=== PATIENT | female | born 2000 | race Caucasian/White ===

== ENCOUNTER 2023-03-07 16:08 | Emergency (ER) | payer BC, SELFPAY ==
[2023-03-07 16:09] VITALS: BP 121/82
[2023-03-07 16:26] LABS: % Basophils 0.5 % (0-2); % Eosinophils 0.8 % (0-6); % Immature Granulocytes 0.1 % (0-0.5); % Monocytes 5.7 % (1.7-9.3); % Neutrophils 73.9 % (42.2-75.2); Absolute Eosinophils 0.1 10^3/uL (0-0.7); Absolute Lymphocytes 1.4 10^3/uL (1.2-3.4); Absolute Monocytes 0.4 10^3/uL (0.1-0.6); Absolute Neutrophils 5.5 10^3/uL (1.4-6.5); Hematocrit 31.5 % (37.0-47.0); Hemoglobin 11.1 g/dL (12.0-16.0); Mean Corp Hgb Conc. 35.2 g/dL (33.0-37.0); Mean Corpuscular Hgb 32.5 pg (27.0-31.0); Mean Corpuscular Volume 92.1 fL (81.0-99.0); Mean Platelet Volume 9.2 fL (7.4-10.4); Nucleated Red Blood Cells % 0 %; Platelet Count 260 10^3/uL (130-400); Red Blood Cell Count 3.42 10^6/uL (4.20-5.40); Red Cell Dist. Width 12.5 % (11.5-14.5); White Blood Cell Count 7.4 10^3/uL (4.8-10.8)
[2023-03-07 16:55] LABS: ALT (SGPT) 12 U/L (0-35); AST (SGOT) 19 U/L (14-36); Albumin 4.3 g/dl (3.5-5.0); Alkaline Phosphatase 53 U/L (38-126); Blood Urea Nitrogen 11 mg/dl (7-17); Calcium 9.1 mg/dl (8.4-10.2); Carbon Dioxide 24 mmol/L (22-30); Chloride 99 mmol/L (98-107); Glucose 85 mg/dl (70-99); Potassium 3.4 mmol/L (3.5-5.1); Sodium 136 mmol/L (135-145); Total Bilirubin 1.3 mg/dl (0.2-1.3); Total Protein 7.1 g/dl (6.3-8.2); eGFR > 60.00
[2023-03-07] MEDS: NSS 1000 IV (18:22)
[2023-03-07] MEDS: OMNIPAQUE 50 ML PO (18:23)
[2023-03-07] MEDS: ZOFRAN 4 MG IV (18:23)
[2023-03-07] MEDS: TORADOL 30 MG IV (18:23)
--- NOTE | 2023-03-07 18:23 | ED.GENMED ---
History of Present Illness
General
Chief Complaint: Abdominal Pain
Source: patient
Exam Limitations: none
Time Seen by Provider: 03/07/23 18:04
Travel History
Have you had any contact with someone who has COVID-19?: No
Do you have any symptoms of coronavirus? Fever > 100 degrees, chills, cough, shortness of breath, sore throat, loss of taste or smell, muscle aches, or headache?: No
History of Present Illness
History of Present Illness:
This is a 22 year old female that comes in with c/o abd pain. States that she has had abd pain for the past 4 days, an 09/21. States that she is also nauseated. States that at first she thought it was from her period as she just started. States that
she was told that her first couple periods may be worse after her surgery for endometrial cyst. States that she has not been able to eat and that the pain is severe. 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 States that she
vomited 5 times on Sunday and once on Sunday. States that she had a little diarrhea, has a headache and feels lightheaded. Denies any fever, chills, chest pain, SOB, urinary burning.
Past History
Past History
ED Past Medical History: Psychiatric (Anxiety) and Other (Ovarian cyst and uterine fibroids. ADHD)
ED Past Surgical History: Gynecological (bilateral ovarian cystectomy due to Endometriosis)
Social History
Tobacco: Non-smoker
Alcohol: None
Personal: Single
Living: with family
Employment: Employed
Review of Systems
Review of Systems
All Other Systems: ROS reviewed and negative except as documented in HPI and ROS
Constitutional: Reports no symptoms; Denies fever or chills
EENT: Reports no symptoms
Respiratory: Reports no symptoms; Denies cough or trouble breathing
Cardiac: Reports chest pain
ABD/GI: Reports abdominal pain, nausea, vomiting and diarrhea
: Reports no symptoms; Denies dysuria, frequency or urgency
Musculoskeletal: Reports no symptoms
Skin: Reports no symptoms
Neurological: Reports dizzy (Lightheaded) and headache
Psychiatric: Reports no symptoms
Phy Exam
General Physical Exam
General Presentation: no apparent distress
General age: appears stated age
General Skin: warm and dry
General Habitus: normal
General Mental: alert
General Hydration: appears well hydrated
ENT Exam
ENT Exam: TM's normal, pharynx normal and neck supple
Eye Exam
Eye Exam: EOMI
Cardiovascular Exam
Cardiovascular Exam: regular rate/rhythm, no edema, no murmur and normal peripheral pulses
Pulmonary Exam
Pulmonary Exam: lungs clear, no respiratory distress, no rales, chest non tender, no crackles, no rhonchi, no wheezing and no cough
Gastrointestinal Exam
Gastrointestinal Exam: normal bowel sounds, soft, no organomegaly, no pulsatile mass, non distended and tender (right lower abd tenderness with palpation)
Musculoskeletal Exam
Musculoskeletal Exam: full ROM and no edema
Skin Exam
Skin Exam: normal color, warm/dry, no rash and no petechia
Psychiatric Exam
Psychiatric Exam: normal mood/affect
Course
Orders/Labs/Results
Orders:
Orders
03/07/23 16:18
CMP [Comprehensive Metabolic Panel] Urgent
Complete Blood Count/With Diff Urgent
HCG, Serum Qualitative Screen Urgent
Comment: ADD ON
03/07/23 18:06
Add On- LAB Urgent
Tests Added?: HCG
03/07/23 18:14
0.9% Sodium Chloride 1000 ml [Nss] 1,000 ml IV BOLUS
Ondansetron Injectable [Zofran] 4 mg IV NOW STA
03/07/23 18:16
CT Abd/pel W Iv And Oral Contr Urgent
Comment:
Reason For Exam: right sided abd pain
Iohexol [Omnipaque] See Protocol PO NOW STA
Ketorolac [Toradol] 30 mg IV NOW STA
Abnormal Lab Results
03/07/23
16:18
RBC 3.42 L 10^6/uL
(4.20-5.40)
Hgb 11.1 L g/dL
(12.0-16.0)
Hct 31.5 L %
(37.0-47.0)
MCH 32.5 H pg
(27.0-31.0)
Lymphocytes % 19.0 L %
(20.5-51.1)
Potassium 3.4 L mmol/L
(3.5-5.1)
03/07/23 16:18
03/07/23 16:18
H/H slightly low.
Vital Signs
Initial and Last Documented VS:
Initial Vital Signs
Temp Pulse Resp BP Pulse Ox
98.4 F 79 18 121/82 100
03/07/23 16:09 03/07/23 16:09 03/07/23 16:09 03/07/23 16:09 03/07/23 16:09
Last Documented Vital Signs
Temp Pulse Resp BP Pulse Ox
98.4 F 79 18 121/82 100
03/07/23 16:09 03/07/23 16:09 03/07/23 16:09 03/07/23 16:09 03/07/23 16:09
MDM/Problems Addressed
Differential Diagnosis Includes:
Appendicitis,
MDM/Problems Addressed:
This is a 22 year old female that comes in with c/o abd pain and nausea. States that this has been going on for 4 days and that she has not been able to work. states that she has surgery for endometrial cyst and she was told that her first couple
periods would be worse. States that she started with her period and felt at first this was the cause of her pain and nausea but it is not getting any better and feels that the pain is severe.
Will get labs, CT abd/pelvis
Message sent to Dr. Gonzalez and copy of CT report. Reviewed the CT findings with patient. Will have patient Use Tylenol 1000mg every 6 hours for pain and alternate with Ibuprofen 600mg every 6 hours with food. Follow up in the [facility] office. Will
also give patient a prescription for Zofran. Patient to return with any other concerns.
Chronic conditions affecting care: Other (endometriosis)
Acute Exacerbation and/or Progression of Chronic Illness: Other (Ovarian cyst)
*Radiology
Radiology exam reviewed: radiology read reviewed (Large bilateral complex partially solid and partially cystic adnexal masses measureing 5.7cm in size on the right and 6.0 cm in size on the left. Recurrent bilateral ovrian endometriomas are
considered most likely given the patient's history and previous imaging findings. Tubo-ovarian abscesses or) and other (CT cont- Tubo-ovarian abscesses or ovarian tumors could have a similar imaging appearance, but are considered less likely)
*Pulse Oximetry
Patient hypoxic: no
*EKG
Interpreted by ED Provider?: NA
Rate: EKG- N/A
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
Rate: Bd Special Education Teacher- N/A
*Critical Care Note
Total Time (30-74mins, 75-104mins- exclusive of procedures): Not Applicable
ED Attending Note
-
Portions of this chart may have been created with voice recognition software.� Occasional wrong word or��sound alike� substitutions may have occurred due to the inherent limitations of voice recognition software.
Discharge Plan
Departure
Patient Disposition: Home (Routine Discharge)
Date of Disposition: 03/07/23
Time of Disposition: 21:58
Patient with high blood pressure during this ER visit?: No
Condition: Good
Covid-19: Not Applicable
Discharge Problem:
Ovarian cyst
Instructions: Ovarian Cyst (DC)
Prescriptions:
New
ondansetron 4 mg tablet,disintegrating
4 mg PO Q8H PRN (Reason: nausea and vomiting) Qty: 10 0RF
No Action
spironolactone 50 mg Tablet
50 mg PO DAILY
escitalopram oxalate [Lexapro] 5 mg Tablet
5 mg PO DAILY
acetaminophen [Pain Relief ES (acetaminophen)] 500 mg Tablet
1,000 mg PO Q6HPRN PRNQty: 0 0RF
oxycodone 5 mg Tablet
2.5 mg PO Q4HPRN PRN (Reason: moderate pain) Qty: 0 0RF
oxycodone 5 mg tablet
5 mg PO Q6H PRN (Reason: severe pain) Qty: 12 0RF
Referrals:
Manju Gonzalez, DO [Active] - Follow up in 2-3 days
Abdon Garcia MD [Family Provider] -
Activity Restrictions/Additional Instructions:
As discussed, your blood work is normal. Your CT shows that there are bilateral adnexal cyst again that are most likely Ovarian endometriomas. Please call the [facility] office tomorrow and they will get you back into see Dr. Gonzalez. You may use
Tylenol 1000mg every 6 hours for pain and alternate with Ibuprofen 600mg every 6 hours with food. You have also had a prescription for Zofran sent to your pharmacy to help with nausea and vomiting. IF YOU HAVE ANY OTHER CONCERNS PLEASE RETURN TO THE
EMERGENCY ROOM.
Interventions
Interventions:
*Risk Screen - Suicide Last Done: 03/07/23 18:02
*General Assessment Last Done: 03/07/23 18:02
*Neglect/Abuse Screening Last Done: 03/07/23 18:02
ED- Fall Risk Assessment Last Done: 03/07/23 18:02
*ED COVID-19 Vaccine History Last Done: 03/07/23 18:02
UJ-Qhiqen-Afwnecwhhp Assessment Last Done: 03/07/23 18:02
[2023-03-07 18:47] LABS: HCG, Serum Qualitative Screen Negative
[2023-03-07] MEDS: ZOFRAN ODT (ORALLY DISINTEGRATING) 4 MG PO (22:16)
== END 2023-03-07 23:15 | disposition home or self-care (01) ==
LOC: EMR 16:08
PROVIDERS: Emergency Medicine; EMERGENCY PHYSICIAN Emergency Medicine; FAMILY PHYSICIAN Internal Medicine
DX: N83.209 Unspecified ovarian cyst, unspecified side (principal); F41.9 Anxiety disorder, unspecified
CPT/HCPCS: 99284; 96374; 96375; 96361; 74177; 80053; 84703; 85025; Q9967

== ENCOUNTER 2023-03-09 20:35 | Emergency (ER) | payer BC, SELFPAY ==
[2023-03-09 20:41] VITALS: BP 127/76
--- NOTE | 2023-03-09 21:57 | ED.GENMED ---
History of Present Illness
<MARIANA Lancaster - Last Filed: 03/09/23 22:34>
General
Chief Complaint: Abdominal Pain
Source: patient
Exam Limitations: none
Time Seen by Provider: 03/09/23 21:56
Nursing documentation reviewed up to this point in time: agreed with
Travel History
Have you had any contact with someone who has COVID-19?: No
Do you have any symptoms of coronavirus? Fever > 100 degrees, chills, cough, shortness of breath, sore throat, loss of taste or smell, muscle aches, or headache?: No
History of Present Illness
History of Present Illness:
This is a 22 YOF with PMHx of endometriosis and recurrent endometriomas/ovarian cysts presenting with worsening LLQ and RLQ pain. Pt was seen on 03/07/23 for abd pain and was dx with two new endometriomas, one L and R. Pt was cleared for ovarian
torsion and tubo-ovarian abscess at the time of eval. Pt had recent sx removal of cysts in Jan 2023 and was still in recovery from that surgery when these new cysts were found. Pt given instructions to return to ED with new or worsening pain. Pt
mentioned 8/10 LLQ and RLQ pain worsened today around 1400, with new tightening sensation. Pt c/o worsening nausea despite taking Zofran which was giving pt relief prior to today. Last dose at 1530. Pt mentioned inferior sternal chest pain that
worsens with flares in her LLQ and RLQ pain. Pt also c/o L sided 7/10 SILVA, mild L ear pain, congestion, dizziness, sore throat, myalgias that began today. Pt denied any fevers, vision changes, SOB, D/C, MSK weakness, sensory deficits. Pt denied any
recent sick contacts. NKDA. Pt currently taking Tylenol, Zofran, LoLoestrin OCP, spironolactone, lexapro. PE significant for LLQ and RLQ tenderness to palpation.
Past History
<MARIANA Lancaster - Last Filed: 03/09/23 22:34>
Past History
ED Past Medical History: Psychiatric (Anxiety) and Other (Ovarian cyst and uterine fibroids. ADHD)
ED Past Surgical History: Gynecological (bilateral ovarian cystectomy due to Endometriosis)
Social History
Tobacco: Non-smoker
Alcohol: None
Personal: Single
Living: with family
Employment: Employed
Review of Systems
<Vicky Hansen [facility] - Last Filed: 03/09/23 22:34>
Review of Systems
Allergies reviewed?: Yes
All Other Systems: ROS reviewed and negative except as documented in HPI and ROS
Constitutional: Reports no symptoms
EENT: Reports sore throat
Respiratory: Reports no symptoms
Cardiac: Reports chest pain
ABD/GI: Reports abdominal pain and nausea
: Reports no symptoms
Musculoskeletal: Reports muscle pain
Skin: Reports no symptoms
Neurological: Reports dizzy and headache
Psychiatric: Reports no symptoms
Phy Exam
<Vicky Hansen [facility] - Last Filed: 03/09/23 22:34>
General Physical Exam
General Presentation: well appearing
General age: appears stated age
General Skin: warm and dry
General Habitus: normal
General Mental: alert
General Hydration: appears well hydrated
ENT Exam
ENT Exam: EOMI, TM's normal, neck supple, pharyngeal erythema and swallowing well
Eye Exam
Eye Exam: PERRL and EOMI
Cardiovascular Exam
Cardiovascular Exam: regular rate/rhythm
Pulmonary Exam
Pulmonary Exam: lungs clear, no respiratory distress, no rales, no crackles, no rhonchi, no stridor, no wheezing and no cough
Gastrointestinal Exam
Gastrointestinal Exam: normal bowel sounds, soft, no pulsatile mass, non distended and tender
Neurological Exam
Neurological Exam: alert, oriented x3, no motor deficits, no sensory deficits, speech normal and normal gait
Skin Exam
Skin Exam: normal color and warm/dry
Psychiatric Exam
Psychiatric Exam: normal mood/affect
Course
Senaitlt;MARIANA Lancaster - Last Filed: 03/09/23 22:34>
Orders/Labs/Results
Orders:
Orders
03/09/23 22:48
IV Insert/Care/Rem.- Treatment PRN
0.9% Sodium Chloride 1000 ml [Nss] 1,000 ml IV BOLUS
03/09/23 22:49
Test Result ONCE
03/09/23 22:59
US Pelvis W Transvag Combined Urgent
Comment:
Reason For Exam: bilateral pelvic pain, ovarian cysts
03/09/23 23:14
Complete Blood Count/With Diff Urgent
Comprehensive Metabolic Panel Urgent
HCG, Serum Qualitative Screen Urgent
Morphine Sulfate 4 mg IV NOW STA
Ondansetron Injectable [Zofran] 4 mg IV NOW STA
Abnormal Lab Results
03/09/23
23:14
RBC 3.29 L 10^6/uL
(4.20-5.40)
Hgb 10.6 L g/dL
(12.0-16.0)
Hct 29.1 L %
(37.0-47.0)
MCH 32.2 H pg
(27.0-31.0)
Glucose 105 H mg/dl
(70-99)
03/09/23 23:14
03/09/23 23:14
Vital Signs
Initial and Last Documented VS:
Initial Vital Signs
Temp Pulse Resp BP Pulse Ox
98.0 F 90 18 127/76 99
03/09/23 20:41 03/09/23 20:41 03/09/23 20:41 03/09/23 20:41 03/09/23 20:41
Last Documented Vital Signs
Temp Pulse Resp BP Pulse Ox
98.0 F 90 18 127/76 99
03/09/23 20:41 03/09/23 20:41 03/09/23 20:41 03/09/23 20:41 03/09/23 20:41
<Reggie Broderick, DO - Last Filed: 03/10/23 01:00>
Orders/Labs/Results
Orders:
Orders
03/09/23 22:48
IV Insert/Care/Rem.- Treatment PRN
0.9% Sodium Chloride 1000 ml [Nss] 1,000 ml IV BOLUS
03/09/23 22:49
Test Result ONCE
03/09/23 22:59
US Pelvis W Transvag Combined Urgent
Comment:
Reason For Exam: bilateral pelvic pain, ovarian cysts
03/09/23 23:14
Complete Blood Count/With Diff Urgent
Comprehensive Metabolic Panel Urgent
HCG, Serum Qualitative Screen Urgent
Morphine Sulfate 4 mg IV NOW STA
Ondansetron Injectable [Zofran] 4 mg IV NOW STA
Abnormal Lab Results
03/09/23
23:14
RBC 3.29 L 10^6/uL
(4.20-5.40)
Hgb 10.6 L g/dL
(12.0-16.0)
Hct 29.1 L %
(37.0-47.0)
MCH 32.2 H pg
(27.0-31.0)
Glucose 105 H mg/dl
(70-99)
03/09/23 23:14
03/09/23 23:14
Vital Signs
Initial and Last Documented VS:
Initial Vital Signs
Temp Pulse Resp BP Pulse Ox
98.0 F 90 18 127/76 99
03/09/23 20:41 03/09/23 20:41 03/09/23 20:41 03/09/23 20:41 03/09/23 20:41
Last Documented Vital Signs
Temp Pulse Resp BP Pulse Ox
98.0 F 90 18 127/76 99
03/09/23 20:41 03/09/23 20:41 03/09/23 20:41 03/09/23 20:41 03/09/23 20:41
<MARIANA Lancaster - Last Filed: 03/09/23 22:34>
MDM/Problems Addressed
Differential Diagnosis Includes:
Endometriomas/ovarian cyst, Ovarian torsion, Tubo-ovarian abscess
MDM/Problems Addressed:
22 YOF presenting with RLQ and LLQ pain
Chronic conditions affecting care:
Endometriosis, endometriomas
Acute Exacerbation and/or Progression of Chronic Illness:
Endometriosis, endometriomas
<MARIANA Lancaster - Last Filed: 03/09/23 22:34>
*Pulse Oximetry
Patient hypoxic: no
*Critical Care Note
Total Time (30-74mins, 75-104mins- exclusive of procedures): Not Applicable
ED Attending Note
<MARIANA Lancaster - Last Filed: 03/09/23 22:34>
-
Portions of this chart may have been created with voice recognition software.� Occasional wrong word or��sound alike� substitutions may have occurred due to the inherent limitations of voice recognition software.
<Reggie Broderick DO - Last Filed: 03/10/23 01:00>
ED Attending Note
Patient seen and examined by attending physician: Yes
I performed the substantive portion of visit, reviewed & personally made and approve the management plan that is documented in note by myself or CHAKA.: Yes
I performed a history and physical exam of patient and discussed management with resident, I reviewed resident's note and agree with documented findings and plan of care.: Yes
ED Attending Note:
I have reviewed and agree with history and treatment plan by Vicky Hansen. My exam revealed 22-year-old female with healing laparotomy incisions, tender to palpation bilaterally. Concern for torsion and detorsion. US pelvis pending, will d/w Dr.
Lisa.
Ultrasound shows good flow bilaterally, patient comfortable. Do not suspect torsion detorsion this time. Discussed with Dr. Gonzalez, who will follow-up in office.
Discharge Plan
Departure
Patient Disposition: Home (Routine Discharge)
Date of Disposition: 03/10/23
Time of Disposition: 00:58
Patient with high blood pressure during this ER visit?: Yes
Condition: Good
Discharge Problem:
Ovarian cyst, Pelvic pain
Instructions: Ovarian Cyst (DC), Endometriosis (DC)
Prescriptions:
No Action
spironolactone 50 mg Tablet
50 mg PO DAILY
escitalopram oxalate [Lexapro] 5 mg Tablet
5 mg PO DAILY
acetaminophen [Pain Relief ES (acetaminophen)] 500 mg Tablet
1,000 mg PO Q6HPRN PRNQty: 0 0RF
oxycodone 5 mg Tablet
2.5 mg PO Q4HPRN PRN (Reason: moderate pain) Qty: 0 0RF
oxycodone 5 mg tablet
5 mg PO Q6H PRN (Reason: severe pain) Qty: 12 0RF
ondansetron 4 mg tablet,disintegrating
4 mg PO Q8H PRN (Reason: nausea and vomiting) Qty: 10 0RF
Referrals:
Manju Gonzalez, [Active] - Call in 1-3 days for appt
Abdon Garcia MD [Family Provider] -
Interventions
Interventions:
*Risk Screen - Suicide Last Done: 03/09/23 20:41
*General Assessment Last Done: 03/09/23 20:41
*Neglect/Abuse Screening Last Done: 03/09/23 20:41
*ED COVID-19 Vaccine History Last Done: 03/09/23 20:41
EW-Hjwtym-Xvvykpznpy Assessment Last Done: 03/09/23 23:20
[2023-03-09] MEDS: NSS 1000 IV (23:15)
[2023-03-09 23:20] LABS: % Basophils 0.8 % (0-2); % Immature Granulocytes 0.2 % (0-0.5); % Lymphocytes 31.1 % (20.5-51.1); % Monocytes 5.8 % (1.7-9.3); % Neutrophils 60.1 % (42.2-75.2); Absolute Basophils 0.1 10^3/uL (0-0.2); Absolute Eosinophils 0.1 10^3/uL (0-0.7); Absolute Monocytes 0.4 10^3/uL (0.1-0.6); Absolute Neutrophils 3.8 10^3/uL (1.4-6.5); Hematocrit 29.1 % (37.0-47.0); Hemoglobin 10.6 g/dL (12.0-16.0); Mean Corp Hgb Conc. 36.4 g/dL (33.0-37.0); Mean Corpuscular Hgb 32.2 pg (27.0-31.0); Mean Corpuscular Volume 88.4 fL (81.0-99.0); Nucleated Red Blood Cells % 0 %; Platelet Count 277 10^3/uL (130-400); Red Blood Cell Count 3.29 10^6/uL (4.20-5.40); Red Cell Dist. Width 12.6 % (11.5-14.5); White Blood Cell Count 6.4 10^3/uL (4.8-10.8)
[2023-03-09] MEDS: MORPHINE SULFATE 4 MG IV (23:20)
[2023-03-09] MEDS: ZOFRAN 4 MG IV (23:20)
[2023-03-09 23:32] LABS: HCG, Serum Qualitative Screen Negative
[2023-03-09 23:34] LABS: ALT (SGPT) 19 U/L (0-35); AST (SGOT) 21 U/L (14-36); Alkaline Phosphatase 48 U/L (38-126); Blood Urea Nitrogen 13 mg/dl (7-17); Calcium 8.7 mg/dl (8.4-10.2); Carbon Dioxide 27 mmol/L (22-30); Chloride 106 mmol/L (98-107); Glucose 105 mg/dl (70-99); Sodium 137 mmol/L (135-145); Total Bilirubin 0.7 mg/dl (0.2-1.3); Total Protein 6.5 g/dl (6.3-8.2); eGFR > 60.00
[2023-03-10 01:08] VITALS: BP 96/56
== END 2023-03-10 01:12 | disposition home or self-care (01) ==
LOC: EMR 20:35
PROVIDERS: EMERGENCY PHYSICIAN Emergency Medicine; FAMILY PHYSICIAN Internal Medicine
DX: N80.9 Endometriosis, unspecified (principal); R11.0 Nausea; R07.2 Precordial pain; R51.9 Headache, unspecified; R42 Dizziness and giddiness; R10.2 Pelvic and perineal pain; H92.02 Otalgia, left ear; M79.10 Myalgia, unspecified site; D25.9 Leiomyoma of uterus, unspecified; J02.9 Acute pharyngitis, unspecified; F41.9 Anxiety disorder, unspecified; F90.9 Attention-deficit hyperactivity disorder, unspecified type; Z98.890 Other specified postprocedural states
CPT/HCPCS: 99284; 96374; 96375; 76830; 76856; 80053; 84703; 85025

== ENCOUNTER 2023-04-23 14:34 | Emergency (ER) | payer BC, SELFPAY ==
[2023-04-23 14:36] VITALS: BP 126/81
[2023-04-23 14:49] LABS: % Basophils 0.7 % (0-2); % Eosinophils 1.2 % (0-6); % Immature Granulocytes 0.4 % (0-0.5); % Lymphocytes 15.9 % (20.5-51.1); % Monocytes 5.7 % (1.7-9.3); % Neutrophils 76.1 % (42.2-75.2); Absolute Basophils 0.1 10^3/uL (0-0.2); Absolute Eosinophils 0.1 10^3/uL (0-0.7); Absolute Lymphocytes 1.3 10^3/uL (1.2-3.4); Absolute Monocytes 0.5 10^3/uL (0.1-0.6); Absolute Neutrophils 6.4 10^3/uL (1.4-6.5); Hematocrit 37.1 % (37.0-47.0); Hemoglobin 12.8 g/dL (12.0-16.0); Mean Corp Hgb Conc. 34.5 g/dL (33.0-37.0); Mean Corpuscular Volume 87.1 fL (81.0-99.0); Mean Platelet Volume 9.5 fL (7.4-10.4); Nucleated Red Blood Cells % 0 %; Platelet Count 263 10^3/uL (130-400); Red Blood Cell Count 4.26 10^6/uL (4.20-5.40); Red Cell Dist. Width 12.5 % (11.5-14.5); White Blood Cell Count 8.4 10^3/uL (4.8-10.8)
[2023-04-23 15:05] LABS: HCG, Serum Qualitative Screen Negative
[2023-04-23 15:18] LABS: ALT (SGPT) 15 U/L (0-35); AST (SGOT) 19 U/L (14-36); Albumin 4.6 g/dl (3.5-5.0); Alkaline Phosphatase 56 U/L (38-126); Blood Urea Nitrogen 8 mg/dl (7-17); Calcium 9.4 mg/dl (8.4-10.2); Carbon Dioxide 25 mmol/L (22-30); Chloride 104 mmol/L (98-107); Glucose 102 mg/dl (70-99); Potassium 3.8 mmol/L (3.5-5.1); Sodium 137 mmol/L (135-145); Total Bilirubin 1.8 mg/dl (0.2-1.3); Total Protein 7.5 g/dl (6.3-8.2); eGFR > 60.00
--- NOTE | 2023-04-23 16:17 | ED.GENMED ---
History of Present Illness
General
Chief Complaint: Abdominal Pain
Source: patient
Exam Limitations: none
Time Seen by Provider: 04/23/23 15:49
Travel History
Have you had any contact with someone who has COVID-19?: No
Do you have any symptoms of coronavirus? Fever > 100 degrees, chills, cough, shortness of breath, sore throat, loss of taste or smell, muscle aches, or headache?: No
History of Present Illness
History of Present Illness:
Patient is a 22-year-old female with history of severe endometriosis stage IV and recently(03/12) had diagnostic laparoscopic drainage of right ovarian endometrioma lysis of adhesions . Patient prior to that had a previous surgery January
2022.patient is on the NuvaRing and therefore should not be getting her period she started bleeding 3 days ago and has been bleeding like a period she also has had increasing pain over the past couple days. Today she was in the shower and her
vision went black and she stopped hearing she later self on the floor but did not fully pass out. She called her [employer] [facility] group to recommend that she take the new ring out and come to the ER.
Past History
Past History
ED Past Medical History: Psychiatric (Anxiety) and Other (Ovarian cyst and uterine fibroids. ADHD)
ED Past Surgical History: Gynecological (bilateral ovarian cystectomy due to Endometriosis)
Social History
Tobacco: Non-smoker
Alcohol: None
Personal: Single
Living: with family
Employment: Employed
Review of Systems
Review of Systems
Allergies reviewed?: Yes
All Other Systems: ROS reviewed and negative except as documented in HPI and ROS
Constitutional: Reports no symptoms; Denies fever, fatigue or chills
Cardiac: Reports other (Patient reports she had lost her vision and lost her hearing prior to arrival for like she was going to pass out but did not fully pass out)
ABD/GI: Reports abdominal pain and nausea
: Reports other (vaginal bleeding for past 3 d )
Musculoskeletal: Reports no symptoms
Skin: Reports no symptoms
Neurological: Reports no symptoms
Psychiatric: Reports no symptoms
Phy Exam
General Physical Exam
General Presentation: no apparent distress
General age: appears stated age
General Skin: warm and dry
General Habitus: normal
General Mental: alert
General Hydration: appears well hydrated
Gastrointestinal Exam
Gastrointestinal Exam: other (tender throughout lower abdomen )
Course
Orders/Labs/Results
Orders:
Orders
04/23/23 14:39
Test Result ONCE
04/23/23 14:43
Complete Blood Count/With Diff Urgent
Comprehensive Metabolic Panel Urgent
HCG, Serum Qualitative Screen Urgent
04/23/23 16:29
0.9% Sodium Chloride 1000 ml [Nss] 1,000 ml IV BOLUS
Ketorolac [Toradol] 15 mg IV NOW STA
Ondansetron Injectable [Zofran] 4 mg IV NOW STA
04/23/23 16:38
Electrocardiogram (*1) Stat
Reason for Study: Other
Other Reason for Exam: chest pain
EKG- Treatment ONCE
04/23/23 16:44
US Pelvis W Transvag Combined Urgent
Reason For Exam: pelvic pain
Abnormal Lab Results
04/23/23
14:43
Neutrophils % 76.1 H %
(42.2-75.2)
Lymphocytes % 15.9 L %
(20.5-51.1)
Glucose 102 H mg/dl
(70-99)
Total Bilirubin 1.8 H mg/dl
(0.2-1.3)
04/23/23 14:43
04/23/23 14:43
Vital Signs
Initial and Last Documented VS:
Initial Vital Signs
Temp Pulse Resp BP Pulse Ox
98.1 F 98 18 126/81 98
04/23/23 14:36 04/23/23 14:36 04/23/23 14:36 04/23/23 14:36 04/23/23 14:36
Last Documented Vital Signs
Temp Pulse Resp BP Pulse Ox
98.1 F 98 18 126/81 98
04/23/23 14:36 04/23/23 14:36 04/23/23 14:36 04/23/23 14:36 04/23/23 14:36
MDM/Problems Addressed
Differential Diagnosis Includes:
Not limited to anemia endometriosis less likely ovarian torsion
MDM/Problems Addressed:
Patient as document is a 22-year-old female with significant stage IV endometriosis managed on NuvaRing but started with vaginal bleeding and pain for the past several days. Ultrasound shows a right ovarian endometrioma measuring up to 3.3 cm on
exam and there is redemonstration of a complex tubular structure left adnexa which may represent a distended fallopian tube or an endometrial deposit no evidence of torsion. Patient stable hemoglobin in no acute distress given Toradol fluids here
in the ER. Case reviewed with OB on-call Celestina . Recommended patient call the office tomorrow for appointment will need alternative management/treatment plan for endometriosis. She is stable for discharge home
*Critical Care Note
Total Time (30-74mins, 75-104mins- exclusive of procedures): Not Applicable
ED Attending Note
-
Portions of this chart may have been created with voice recognition software.� Occasional wrong word or��sound alike� substitutions may have occurred due to the inherent limitations of voice recognition software.
Discharge Plan
Departure
Patient Disposition: Home (Routine Discharge)
Date of Disposition: 04/23/23
Time of Disposition: 19:35
Patient with high blood pressure during this ER visit?: No
Condition: Fair
Covid-19: Not Applicable
Discharge Problem:
Pelvic pain
Instructions: Pelvic Pain (DC)
Prescriptions:
No Action
spironolactone 50 mg Tablet
50 mg PO QPM
escitalopram oxalate [Lexapro] 5 mg Tablet
5 mg PO DAILY
norethindrone-e.estradiol-iron [Aurovela Fe 1.5/30 (28)] 1.5 mg-30 mcg (21)/75 mg (7) Tablet
1 tab PO DAILY
ondansetron 4 mg tablet,disintegrating
4 mg PO Q8HPRN PRN (Reason: nausea and vomiting)
oxycodone 5 mg Tablet
5 mg PO Q4HPRN PRN (Reason: severe pain) Qty: 8 0RF
Referrals:
Maddi Kunz MD [Active] -
Abdon Garcia MD [Family Provider] -
Activity Restrictions/Additional Instructions:
As discussed you may take ibuprofen 6 mg every 8 hours with food alternate with Tylenol for discomfort call [facility] office tomorrow to make an appointment in the next several days for reevaluation of your symptoms and for new management of symptoms
Return if any worsening of symptoms
Interventions
Interventions:
*Risk Screen - Suicide Last Done: 04/23/23 14:36
*General Assessment Last Done: 04/23/23 14:36
*Neglect/Abuse Screening Last Done: 04/23/23 14:36
*ED COVID-19 Vaccine History Last Done: 04/23/23 14:36
DV-Ufmtdy-Gpknzxtdiq Assessment Last Done: 04/23/23 15:40
[2023-04-23] MEDS: NSS 1000 IV (16:40)
[2023-04-23] MEDS: TORADOL 15 MG IV (16:41)
[2023-04-23] MEDS: ZOFRAN 4 MG IV (16:41)
[2023-04-23 19:46] VITALS: BP 99/59
[2023-04-23 19:48] VITALS: BP 99/59
== END 2023-04-23 19:48 | disposition home or self-care (01) ==
LOC: EMR 14:34
PROVIDERS: Emergency Medicine; EMERGENCY PHYSICIAN Emergency Medicine; FAMILY PHYSICIAN Internal Medicine
DX: R10.2 Pelvic and perineal pain (principal); N93.9 Abnormal uterine and vaginal bleeding, unspecified; R11.0 Nausea; N80.122 Deep endometriosis of left ovary; D25.9 Leiomyoma of uterus, unspecified; F41.9 Anxiety disorder, unspecified; F90.9 Attention-deficit hyperactivity disorder, unspecified type
CPT/HCPCS: 99284; 96374; 96375; 96361; 76830; 76856; 80053; 84703; 85025; 93005

== ENCOUNTER 2023-08-24 21:29 | Emergency (ER) | payer BC, SELFPAY ==
[2023-08-24 21:31] VITALS: BP 121/82
--- NOTE | 2023-08-24 22:05 | ED.GENMED ---
History of Present Illness
General
Chief Complaint: Abdominal Pain
Source: patient
Exam Limitations: none
Time Seen by Provider: 08/24/23 22:05
Nursing documentation reviewed up to this point in time: agreed with
Past History
Past History
ED Past Medical History: Psychiatric (Anxiety) and Other (Ovarian cyst and uterine fibroids. ADHD)
ED Past Surgical History: Gynecological (bilateral ovarian cystectomy due to Endometriosis)
Social History
Tobacco: Non-smoker
Alcohol: None
Personal: Single
Living: with family
Employment: Employed
Course
Vital Signs
Initial and Last Documented VS:
Initial Vital Signs
Temp Pulse Resp BP Pulse Ox
98.3 F 78 14 121/82 100
08/24/23 21:31 08/24/23 21:31 08/24/23 21:31 08/24/23 21:31 08/24/23 21:31
Last Documented Vital Signs
Temp Pulse Resp BP Pulse Ox
98.3 F 78 14 121/82 100
08/24/23 21:31 08/24/23 21:31 08/24/23 21:31 08/24/23 21:31 08/24/23 21:31
ED Attending Note
-
Portions of this chart may have been created with voice recognition software.� Occasional wrong word or��sound alike� substitutions may have occurred due to the inherent limitations of voice recognition software.
Discharge Plan
Departure
Prescriptions:
No Action
spironolactone 50 mg Tablet
50 mg PO QPM
escitalopram oxalate [Lexapro] 5 mg Tablet
5 mg PO DAILY
norethindrone-e.estradiol-iron [Aurovela Fe 1.5/30 (28)] 1.5 mg-30 mcg (21)/75 mg (7) Tablet
1 tab PO DAILY
ondansetron 4 mg tablet,disintegrating
4 mg PO Q8HPRN PRN (Reason: nausea and vomiting)
oxycodone 5 mg Tablet
5 mg PO Q4HPRN PRN (Reason: severe pain) Qty: 8 0RF
Interventions
Interventions:
*Risk Screen - Suicide Last Done: 08/24/23 21:31
*General Assessment Last Done: 08/24/23 21:31
*Neglect/Abuse Screening Last Done: 08/24/23 21:31
Discharge Date and Time
Print Language: MALTESE
[2023-08-24] MEDS: NSS 1000 IV (22:25)
--- NOTE | 2023-08-24 22:27 | ED.GENMED ---
History of Present Illness
General
Chief Complaint: Abdominal Pain
Source: patient and previous hospital records (Previous ED visits for very similar complaint most recently April of this year.)
Exam Limitations: none
Time Seen by Provider: 08/24/23 22:05
Nursing documentation reviewed up to this point in time: agreed with
History of Present Illness
History of Present Illness:
This is a 23-year-old woman with history of severe endometriosis follows with Dr. KEYONNA vargas and has undergone laparoscopy January 2023 and then again February 2023 for lysis of adhesions, excision of bilateral endometriomas and excision of
endometriosis.
Chronically maintained on oral contraceptives. Trial of Lupron has repeatedly been denied by her insurance company.
She does admit to significant pelvic pain that is somewhat constant but much worse during her menses which generally occur monthly. Last menstrual period August 05.
More recently however over the past week she has had increasing pelvic pain, more so on the right than left with occasional radiation of right lower quadrant pain to her right low back. Pelvic pain feels very similar to exacerbations of her
endometriosis. She has been taking Advil intermittently for pain with last dose around 6 PM.
She denies fever nor chills, no dysuria urgency or hematuria, no diarrhea or constipation. No flank pain.
She is scheduled for evaluation with endometriosis specialist in [place] in 2 weeks time.
Her daily medications include control pills, spironolactone, Lexapro.
She also notes intermittent episodes of elevated heart rate noted on her Apple Watch noting a heart rate of 120. Episodes are brief in nature occur at rest and not associated with palpitations. She has noted similar elevated heart rate
sporadically in the past but has not occurred over the past 6 months until more recently earlier this week. No leg pain or swelling, no chest pain, no dizziness or lightheadedness, no shortness of breath or cough.
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 Lesion returned benign. She has [address] along the right low back region which were to be removed by nurse/friend this evening but instead patient came to the
ED for evaluation of pelvic pain. She is inquiring if sutures can be removed here.
Past History
Past History
ED Past Medical History: Psychiatric (Anxiety) and Other (Ovarian cyst and uterine fibroids. ADHD; severe endometriosis)
ED Past Surgical History: Gynecological (bilateral excision of endometriomas, lysis of endometriosis January 2023 and again February 2023)
Social History
Tobacco: Non-smoker
Alcohol: None
Personal: Single
Living: with family
Employment: Employed
Family History
Family History: Other (Noncontributory)
Phy Exam
Physical Exam
Physical Exam:
GENERAL: 23-year-old female appears her stated age, bright and alert, pleasant, appears in no acute distress. Mother is accompanying.
EYE: anicteric
NECK: Supple, nontender, no meningismus, no significant adenopathy.
ENT: oral mucosa is moist. No rhinorrhea
CARDIAC: Regular rate and rhythm. no murmur.
LUNGS: Clear breath sounds bilaterally, no acute respiratory distress, no wheezes/rales/rhonchi
ABDOMEN: Soft, nondistended, mild generalized tenderness to the lower abdomen without rebound or guarding or rigidity, no cvat. normoactive BS.
NEUROLOGICAL: Alert and oriented x3, no focal neuro deficits. Gait is steady.
SKIN: Warm and dry, normal color, no rash. Right low back has a three-quarter centimeter surgical incision with 3 intact sutures. Incision appears well-healed. No erythema, no drainage, no tenderness.
MUSCULOSKELETAL: No C/C/E. peripheral pulses are full and equal b/l. No palpable tenderness.
PSYCH: Normal and appropriate interaction.
Course
Orders/Labs/Results
Orders:
Orders
08/24/23 22:17
Test Result ONCE
08/24/23 22:22
C-Reactive Protein Urgent
Comment: ADD ON
Complete Blood Count/With Diff Urgent
Comprehensive Metabolic Panel Urgent
HCG, Serum Qualitative Screen Urgent
08/24/23 22:24
0.9% Sodium Chloride 1000 ml [Nss] 1,000 ml IV BOLUS
08/24/23 22:27
Cardiac Monitoring- Treatment ONCE
0.9% Sodium Chloride 1000 ml [Nss] 1,000 ml IV BOLUS
Ketorolac [Toradol] 15 mg IV NOW STA
08/24/23 23:28
US Pelvis W Transvag Combined Urgent
Reason For Exam: severe pelvic pain, hx endometroma/endometriosis
08/24/23 23:29
Add On- LAB Urgent
Tests Added?: CRP
08/25/23 01:35
Ketorolac [Toradol] 15 mg IV NOW STA
Morphine Sulfate 4 mg IV NOW STA
Abnormal Lab Results
08/24/23
22:22
RBC 4.00 L 10^6/uL
(4.20-5.40)
Hct 34.2 L %
(37.0-47.0)
08/24/23 22:22
08/24/23 22:22
Vital Signs
Initial and Last Documented VS:
Initial Vital Signs
Temp Pulse Resp BP Pulse Ox
98.3 F 78 14 121/82 100
08/24/23 21:31 08/24/23 21:31 08/24/23 21:31 08/24/23 21:31 08/24/23 21:31
Last Documented Vital Signs
Temp Pulse Resp BP Pulse Ox
98.3 F 76 18 107/62 96
08/24/23 21:31 08/25/23 01:00 08/25/23 01:00 08/24/23 23:00 08/25/23 01:00
Procedures
Other
Indication for procedure:: Suture removal right low back. Skin nevus removal procedure by dermatologi
Procedure completed by: Myself
Consent form signed: No
Additional Procedure:
3 nylon sutures removed without difficulty from well-healed surgical biopsy site right low back. No bleeding. Patient tolerated procedure well.
Bacitracin and Band-Aid applied post suture removal.
MDM/Problems Addressed
Differential Diagnosis Includes:
Concern for exacerbation of endometriosis, recurrent endometrioma, concern for ovarian torsion, less likely appendicitis, tubo-ovarian abscess.
She does note intermittent brief episodes of elevated heart rate noted on Apple Watch without associated symptomatology. This may be inaccurate recording on Apple Watch. It is reassuring that patient has not had significant palpitations, no chest
pain or shortness of breath. No reported fever. Intermittent episodes of recorded elevated heart rate on Apple Watch have been associated with increased episodes of pain which may be pain response. Less likely thromboembolism but will place on
transmitter engineer in charge to observe.
Will check labs, hCG and plan for pelvic ultrasound.
Will medicate for pain with IV Toradol.
*Radiology
Radiology exam reviewed: radiology read reviewed (Pelvic ultrasound shows bilateral ovarian enlargement right greater than left with right ovary with 3 complex cyst/endometriomas 4 x 3, 3.4 x 3,, 4 x 4 cm. Left ovary enlarged with a septated
cyst/endometrioma measuring 5 x 4 x 5 cm. No evidence of torsion. No free fluid.)
*Pulse Oximetry
Patient hypoxic: no
*Critical Care Note
Total Time (30-74mins, 75-104mins- exclusive of procedures): Not Applicable
Update Note
Update Note:
08/25/2023 01:20 AM
Labs are reassuring with normal white blood cell count, normal inflammatory markers.
Ultrasound shows moderate bilateral ovarian enlargement with multiple complex cyst/endometriomas, 3 on the right, 1 on the left. No evidence of torsion nor free fluid.
Case discussed with SIDE TRIMMER on-call, Dr. King. At this point no indication for emergent surgical procedure but will plan for pain management with short course of Vicodin, recommend she continue ibuprofen as well.
Recommend follow-up with Dr. Hutchinson next week for recheck.
Recommend continue follow-up with endometriosis specialist in [place] in 2 weeks time as already scheduled.
ED Attending Note
-
Portions of this chart may have been created with voice recognition software.� Occasional wrong word or��sound alike� substitutions may have occurred due to the inherent limitations of voice recognition software.
Discharge Plan
Departure
Patient Disposition: Home (Routine Discharge)
Date of Disposition: 08/25/23
Time of Disposition: 01:46
Patient with high blood pressure during this ER visit?: No
Condition: Good
Discharge Problem:
endometriosis with endometromas, Visit for suture removal
Instructions: Endometriosis (DC)
Prescriptions:
New
hydrocodone-acetaminophen 5-300 mg tablet
1 tab PO Q8H PRN (Reason: Pain) Qty: 12 0RF
No Action
spironolactone 50 mg Tablet
50 mg PO QPM
escitalopram oxalate [Lexapro] 5 mg Tablet
5 mg PO DAILY
norethindrone-e.estradiol-iron [Aurovela Fe 1.5/30 (28)] 1.5 mg-30 mcg (21)/75 mg (7) Tablet
1 tab PO DAILY
Referrals:
Manju Gonzalez, DO [Active] - Call in 1-3 days for appt
Abdon Garcia MD [Family Provider] -
Activity Restrictions/Additional Instructions:
Continue ibuprofen 600 mg every 6 hours as needed for pain.
Continue heating pad, rest.
Continue follow-up with specialist in [place] as already scheduled.
Interventions
Interventions:
*Risk Screen - Suicide Last Done: 08/24/23 21:31
*General Assessment Last Done: 08/24/23 21:31
*Neglect/Abuse Screening Last Done: 08/24/23 21:31
ED- Fall Risk Assessment Last Done: 08/24/23 22:23
OZ-Dpjndw-Yyjmvyzmqk Assessment Last Done: 08/24/23 22:23
Discharge Date and Time
Print Language: SOUTH AFRICAN
[2023-08-24 22:28] VITALS: BP 105/67
[2023-08-24] MEDS: TORADOL 15 MG IV (22:31)
[2023-08-24 22:35] LABS: % Basophils 0.6 % (0-2); % Eosinophils 1.3 % (0-6); % Immature Granulocytes 0.2 % (0-0.5); % Lymphocytes 29.9 % (20.5-51.1); % Monocytes 6.1 % (1.7-9.3); % Neutrophils 61.9 % (42.2-75.2); Absolute Basophils 0.1 10^3/uL (0-0.2); Absolute Eosinophils 0.1 10^3/uL (0-0.7); Absolute Lymphocytes 2.6 10^3/uL (1.2-3.4); Absolute Monocytes 0.5 10^3/uL (0.1-0.6); Absolute Neutrophils 5.5 10^3/uL (1.4-6.5); Hematocrit 34.2 % (37.0-47.0); Hemoglobin 12.2 g/dL (12.0-16.0); Mean Corp Hgb Conc. 35.7 g/dL (33.0-37.0); Mean Corpuscular Hgb 30.5 pg (27.0-31.0); Mean Corpuscular Volume 85.5 fL (81.0-99.0); Mean Platelet Volume 9.1 fL (7.4-10.4); Nucleated Red Blood Cells % 0 %; Platelet Count 236 10^3/uL (130-400); Red Cell Dist. Width 13.4 % (11.5-14.5); White Blood Cell Count 8.8 10^3/uL (4.8-10.8)
[2023-08-24 22:45] LABS: HCG, Serum Qualitative Screen Negative
[2023-08-24 22:47] LABS: ALT (SGPT) < 10 U/L (0-35); AST (SGOT) 19 U/L (14-36); Albumin 4.6 g/dl (3.5-5.0); Alkaline Phosphatase 51 U/L (38-126); Blood Urea Nitrogen 15 mg/dl (7-17); Calcium 9.5 mg/dl (8.4-10.2); Carbon Dioxide 27 mmol/L (22-30); Chloride 103 mmol/L (98-107); Glucose 82 mg/dl (70-99); Potassium 3.6 mmol/L (3.5-5.1); Sodium 137 mmol/L (135-145); Total Protein 7.1 g/dl (6.3-8.2); eGFR > 60.00
[2023-08-24 23:00] VITALS: BP 107/62
[2023-08-25 00:20] LABS: C-Reactive Protein < 5.00 mg/L (0.0-10.00)
[2023-08-25] MEDS: MORPHINE SULFATE 4 MG IV (01:50)
[2023-08-25] MEDS: TORADOL 15 MG IV (01:50)
== END 2023-08-25 02:09 | disposition home or self-care (01) ==
LOC: EMR 21:29
PROVIDERS: EMERGENCY PHYSICIAN Emergency Medicine; FAMILY PHYSICIAN Internal Medicine
DX: R10.2 Pelvic and perineal pain (principal); R10.31 Right lower quadrant pain; M54.50 Low back pain, unspecified; N80.9 Endometriosis, unspecified; Z48.02 Encounter for removal of sutures; N83.292 Other ovarian cyst, left side; N83.291 Other ovarian cyst, right side; F41.9 Anxiety disorder, unspecified; F90.9 Attention-deficit hyperactivity disorder, unspecified type; Z79.899 Other long term (current) drug therapy; Z79.3 Long term (current) use of hormonal contraceptives
CPT/HCPCS: 99284; 96374; 96375; 96376; 76830; 76856; 80053; 84703; 85025; 86140

== ENCOUNTER 2023-09-01 21:07 | Emergency (ER) | payer BC, SELFPAY ==
[2023-09-01 21:09] VITALS: BP 105/79
--- NOTE | 2023-09-02 01:05 | ED.GENMED ---
History of Present Illness
General
Chief Complaint: Eye Problems
Source: patient
Exam Limitations: none
Time Seen by Provider: 09/01/23 21:36
Nursing documentation reviewed up to this point in time: agreed with
History of Present Illness
History of Present Illness:
Patient to ED wt complaint of orbital bone pain bilaterally. SYmptoms started last PM and continue today. Denies any history of trauma. No fever/chills No swelling to orbit. BRought to ED by father for eval.
Past History
Past History
ED Past Medical History: Psychiatric (Anxiety) and Other (Ovarian cyst and uterine fibroids. ADHD; severe endometriosis)
ED Past Surgical History: Gynecological (bilateral excision of endometriomas, lysis of endometriosis January 2023 and again February 2023)
Social History
Tobacco: Non-smoker
Alcohol: None
Personal: Single
Living: with family
Employment: Employed
Family History
Family History: Other (Noncontributory)
Review of Systems
Review of Systems
Allergies reviewed?: Yes
All Other Systems: ROS reviewed and negative except as documented in HPI and ROS
Constitutional: Reports no symptoms
EENT: Reports other (Bilateral orbital rim pain.)
Respiratory: Reports no symptoms
Cardiac: Reports no symptoms
ABD/GI: Reports no symptoms
: Reports no symptoms
Musculoskeletal: Reports no symptoms
Skin: Reports no symptoms
Neurological: Reports no symptoms
Psychiatric: Reports no symptoms
Phy Exam
General Physical Exam
General Presentation: well appearing and no apparent distress
General age: appears stated age
General Skin: warm and dry
General Habitus: normal
General Mental: alert
Eye Exam
Eye Exam: PERRL, EOMI, conjunctiva normal, disc sharp, globe normal and other (Tonometry L17 R 19)
Neurological Exam
Neurological Exam: alert, oriented x3, CN II-XII intact, no motor deficits, no sensory deficits and speech normal
Musculoskeletal Exam
Musculoskeletal Exam: full ROM and neuro vasc intact
Skin Exam
Skin Exam: normal color, warm/dry and no rash
Psychiatric Exam
Psychiatric Exam: normal mood/affect
Course
Orders/Labs/Results
Orders:
Orders
09/01/23 21:45
Purified Water Eye Wash [Dacriose Eye Wash Solution] 120 ml .ROUTE .STK-MED ONE
Tetracaine HCl [Tetracaine 0.5% Ophthalmic Solution] 1 drop .ROUTE .STK-MED ONE
Vital Signs
Initial and Last Documented VS:
Initial Vital Signs
Temp Pulse Resp BP Pulse Ox
98.4 F 103 18 105/79 98
09/01/23 21:09 09/01/23 21:09 09/01/23 21:09 09/01/23 21:09 09/01/23 21:09
Last Documented Vital Signs
Temp Pulse Resp BP Pulse Ox
98.4 F 103 18 105/79 98
09/01/23 21:09 09/01/23 21:09 09/01/23 21:09 09/01/23 21:09 09/01/23 21:09
*Critical Care Note
Total Time (30-74mins, 75-104mins- exclusive of procedures): Not Applicable
Update Note
Update Note:
No concerning findings on exam. EOMI, not vision changes. NO swelling or erythema to orbit. WIll discharge home. COntinue ibufrofen, ice prn, follow up with ophthalmology on Sunday. Given instructions on s/s to return Na and she is agreeable
to plan.
ED Attending Note
-
Portions of this chart may have been created with voice recognition software.� Occasional wrong word or��sound alike� substitutions may have occurred due to the inherent limitations of voice recognition software.
Discharge Plan
Departure
Patient Disposition: Home (Routine Discharge)
Date of Disposition: 09/01/23
Time of Disposition: 21:57
Patient with high blood pressure during this ER visit?: No
Condition: Good
Covid-19: Not Applicable
Discharge Problem:
Pain of both orbits
Instructions: Acetaminophen, Using Cold for Pain, Ibuprofen
Prescriptions:
No Action
spironolactone 50 mg Tablet
50 mg PO QPM
escitalopram oxalate [Lexapro] 5 mg Tablet
5 mg PO DAILY
norethindrone-e.estradiol-iron [Aurovela Fe 1.5/30 (28)] 1.5 mg-30 mcg (21)/75 mg (7) Tablet
1 tab PO DAILY
hydrocodone-acetaminophen 5-300 mg tablet
1 tab PO Q8H PRN (Reason: Pain) Qty: 12 0RF
Activity Restrictions/Additional Instructions:
Follow up with your eye doctor next week. Return to the emergency department immediately for increasing pain to your eyes, swelling, discharge or for any further concerns.
Interventions
Interventions:
*Risk Screen - Suicide Last Done: 09/01/23 21:09
*General Assessment Last Done: 09/01/23 21:09
*Neglect/Abuse Screening Last Done: 09/01/23 21:09
ED- Fall Risk Assessment Last Done: 09/01/23 22:19
*ED COVID-19 Vaccine History Last Done: 09/01/23 22:19
*Nursing Disposition Last Done: 09/01/23 22:19
Discharge Date and Time
Discharge Date/Time: 09/01/23 22:20
Print Language: TURKMEN
== END 2023-09-01 22:20 | disposition home or self-care (01) ==
LOC: EMR 21:07
PROVIDERS: EMERGENCY PHYSICIAN Emergency Medicine; FAMILY PHYSICIAN Internal Medicine
DX: M89.8X9 Other specified disorders of bone, unspecified site (principal); F41.9 Anxiety disorder, unspecified
CPT/HCPCS: 99282